=== PATIENT | male | born 1995 | race Caucasian/White ===

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

== ENCOUNTER → 2017-10-12 | Outpatient (CLI) | payer BC ==
--- NOTE | 2017-10-12 08:51 | DIAGNOSTIC IMAGING REPORT ---
(TESTICULAR) SCROTUM-CONT CLINICAL HISTORY: 22 years-old Male with R10.30 Groin painno latex [id number]. Acute groin pain laterality not specified COMPARISON STUDY: Pelvic MR to 2016 TECHNIQUE: Real-time, grayscale, and color Doppler sonography of the testes and scrotum is performed. Images are reviewed in the transverse and longitudinal planes. FINDINGS: RIGHT HEMISCROTUM: The right testis measures 5.3 x 2.8 x 2.6 cm and the parenchyma appears within normal limits. No intratesticular mass is seen. Normal-appearing arterial inflow is present within the right testicle. The right epididymal head appears normal with the exception of a 5 mm epididymal head cyst. No varicocele or hydrocele is identified. LEFT HEMISCROTUM: The left testis measures 5.0 x 3.8 x 2.8 cm and the parenchyma appears within normal limits. No intratesticular mass is seen. Normal-appearing arterial inflow is present within the left testicle. The left epididymal head appears normal. No varicocele or hydrocele is identified. IMPRESSION: 1. Unremarkable sonographic appearance of the bilateral testicles without evidence of torsion or mass. 2. 5 mm right epididymal head cyst. The above report was generated using voice recognition software. It may contain grammatical, syntax or spelling errors. Electronically signed by: Humberto Schulz M.D. 10/12/2017 8:50 AM Dictated Date/Time: 10/12/2017 8:47 AM
== END | disposition home or self-care (01) ==
LOC: C.ULTR 08:15
PROVIDERS: ATTEND Urology
DX: R10.30 Lower abdominal pain, unspecified (principal); N50.3 Cyst of epididymis